=== PATIENT | female | born 1990 | race Two or more races ===

== ENCOUNTER 2024-03-14 07:21 | Emergency (ER) | payer BC ==
[2024-03-14 07:56] VITALS: BMI 25.7
[2024-03-14] MEDS: LACTATED RINGERS SOLUTION 1000 ML INFUS.BAG IV ONE (08:05)
[2024-03-14 08:17] LABS: BASO % 0.3 % (0-2.0); EOS % 1.1 % (0-4.5); HEMATOCRIT 34.4 % (32.4-45.2); HEMOGLOBIN 11.9 GM/dL (10.7-15.3); LYMPH % 25.1 % (8-40); MCH 33.4 pg (25.7-33.7); MCHC 34.6 g/dl (32.0-36.0); MEAN CELL VOLUME 96.6 fl (80-96); MEAN PLT VOLUME 7.1 fl (7.5-11.1); MONO % 6.2 % (3.8-10.2); NEUT % 67.3 % (42.8-82.8); PLATELET COUNT 242 10^3/uL (134-434); RBC 3.56 M/mm3 (3.60-5.2); RDW 13.1 % (11.6-15.6)
[2024-03-14 09:02] LABS: POTASSIUM 3.6 mmol/L (3.5-5.1)
[2024-03-14 09:04] LABS: CALCIUM 8.5 mg/dL (8.5-10.1)
[2024-03-14 09:05] LABS: ALBUMIN 2.9 g/dl (3.4-5.0); BLOOD UREA NITROGEN 7.2 mg/dL (7-18); MAGNESIUM 1.8 mg/dL (1.8-2.4)
[2024-03-14 09:06] LABS: URINE APPEARANCE CLEAR; URINE BILIRUBIN NEGATIVE (NEGATIVE); URINE COLOR YELLOW; URINE GLUCOSE (UA) NEGATIVE (NEGATIVE); URINE KETONE NEGATIVE (NEGATIVE); URINE LEUK ESTERASE NEGATIVE (NEGATIVE); URINE NITRITE NEGATIVE (NEGATIVE); URINE PROTEIN NEGATIVE (NEGATIVE); URINE UROBILINOGEN 0.2 mg/dL (0.2-1.0)
[2024-03-14 09:08] LABS: CREATININE 0.5 mg/dL (0.55-1.3)
[2024-03-14 09:09] LABS: BILIRUBIN,TOTAL 0.4 mg/dL (0.2-1); TOT PROT 6.5 g/dl (6.4-8.2)
[2024-03-14 11:26] VITALS: RESP 18
[2024-03-14 11:31] VITALS: BP 129/80; PULSE 81; TEMP 98.1
== END 2024-03-14 12:25 | disposition home or self-care (01) ==
LOC: JER 07:21
DX: O09.522 Supervision of elderly multigravida, second trimester (principal); O99.891 Other specified diseases and conditions complicating pregnancy; R55 Syncope and collapse; Z3A.27 27 weeks gestation of pregnancy
CPT/HCPCS: 36415; 80053; 81003; 83735; 84439; 84443; 85025; 87086; 93005; 93010; 99284-25